=== PATIENT | female | born 1990 | race Hispanic/Latino ===

== ENCOUNTER 2025-01-07 05:26 | Emergency (ER) | payer OTHER, SELFPAY ==
[2025-01-07 05:28] VITALS: BP 116/80
--- NOTE | 2025-01-07 05:57 | ED.GENMED ---
History of Present Illness
General
Chief Complaint: Musculo-Skeletal Complaint
Time Seen by Provider: 01/07/25 05:57
History of Present Illness
History of Present Illness:
TIME OF INITIAL ENCOUNTER: 6 AM
HPI: Yesterday, the patient placed her ring on her right middle finger that she has not worn in a while and noticed it to be tight however she has been unable to remove it and now the tissue distal to the ring is very swollen. She came in here for
ring removal. She denies any other symptoms or concerns.
EXAM:
GENERAL: Well appearing in no distress
HEENT: Moist oral mucosa
NEUROLOGIC: Excellent strength all extremities, no obvious coordination deficits
PSYCHIATRIC: Appropriate mental status, normal insight and judgement
EXTREMITIES: There is a tight fitting ring to the proximal aspect of the right middle finger with swelling of the soft tissue distally. There is no laceration.
SKIN: No rash, no lesions
NUMBER AND COMPLEXITY OF PROBLEMS ADDRESSED AT THE ENCOUNTER
� Chronic conditions affecting care: Denies any significant past medical history
� Acute Exacerbation and/or Progression of Chronic Illness: This is an acute problem
� Differential Diagnosis includes: Here for ring removal only
AMOUNT AND/OR COMPLEXITY OF DATA TO BE REVIEWED AND ANALYZED
� I performed an independent evaluation of and my interpretation is:
EKG:
CT:
X-rays:
Laboratory Studies:
Other:
� Review of other/old records: No old records available for review in [facility]
� Clinical information was obtained by an independent historian: Significant other at bedside
� Prescriptions/Medications Considered but not given:
� Further testing considered but not performed:
RISK OF COMPLICATIONS AND/OR MORBIDITY OR MORTALITY OF PATIENT MANAGEMENT
� Social determinants of health affecting care: Lives at home
� Discussion with other providers:
� Escalation of care including admission/observation vs risk of discharge considered: I used manual then electric ring cutter and ring damage inside adjuster to remove the ring
ANY OTHER UPDATES:
Phy Exam
Physical Exam
Physical Exam:
See HPI
Course
Vital Signs
Initial and Last Documented VS:
Initial Vital Signs
Temp Pulse Resp BP Pulse Ox
36.6 C 64 16 116/80 99
01/07/25 05:28 01/07/25 05:28 01/07/25 05:28 01/07/25 05:28 01/07/25 05:28
Last Documented Vital Signs
Temp Pulse Resp BP Pulse Ox
36.6 C 64 16 116/80 99
01/07/25 05:28 01/07/25 05:28 01/07/25 05:28 01/07/25 05:28 01/07/25 05:28
Procedures
Ring removal
Ring removed with: lubricant and ring cutters
Is finger swollen distally?: Yes
Distal sensation: intact to touch
Distal capillary refill: brisk
*Critical Care Note
Total Time (30-74mins, 75-104mins- exclusive of procedures): Not Applicable
ED Attending Note
-
Portions of this chart may have been created with voice recognition software.� Occasional wrong word or��sound alike� substitutions may have occurred due to the inherent limitations of voice recognition software.
Discharge Plan
Departure
Patient Disposition: Home (Routine Discharge)
Date of Disposition: 01/07/25
Time of Disposition: 06:11
Patient with high blood pressure during this ER visit?: No
Discharge Problem:
Swelling of right middle finger
Prescriptions:
No Action
No Current Medications
0
Activity Restrictions/Additional Instructions:
Take your ring to the jeweler for repair. Return here if worse or other concerns. Use ice today to help decrease swelling. You could also take Motrin for any discomfort.
Interventions
Interventions:
*Risk Screen - Suicide Last Done: 01/07/25 05:28
*General Assessment Last Done: 01/07/25 05:28
*Neglect/Abuse Screening Last Done: 01/07/25 05:28
*ED- Fall Risk Assessment Last Done: 01/07/25 05:36
*ED COVID-19 Vaccine History Last Done: 01/07/25 05:36
ED-Musculoskeletal Assessment Last Done: 01/07/25 05:51
Discharge Date and Time
Print Language: JAPANESE
== END 2025-01-07 06:20 | disposition home or self-care (01) ==
LOC: EMR 05:26
PROVIDERS: EMERGENCY PHYSICIAN Emergency Medicine
DX: R22.31 Localized swelling, mass and lump, right upper limb (principal)
CPT/HCPCS: 99282